=== PATIENT | male | born 2005 | race Caucasian/White ===

== ENCOUNTER 2025-03-26 21:02 | Emergency (ER) | payer SELFPAY ==
[2025-03-26] MEDS: Diphtheria,Pertussis(Acell),Tetanus Vaccine 0.5 ML Syringe IM ONE (21:36)
== END 2025-03-26 22:17 | disposition home or self-care (01) ==
LOC: MW.ED 21:02
DX: S90.32XA Contusion of left foot, initial encounter (principal); Z75.3 Unavailability and inaccessibility of health-care facilities; W20.8XXA Other cause of strike by thrown, projected or falling object, initial encounter; Z23 Encounter for immunization
CPT/HCPCS: 73610; 73630; 90471; 90715; 99283; A9270; 99282